=== PATIENT | female | born 1980 | race Caucasian/White ===

== ENCOUNTER → 2018-09-18 | Outpatient (CLI) | payer BC | LOC: CARD 09:54 | PROVIDERS: ATTEND Internal Medicine Cardiovascular Disease | DX: R07.9 Chest pain, unspecified (principal); R00.2 Palpitations | CPT/HCPCS: 93225; 93226 ==

== ENCOUNTER → 2018-10-20 | Outpatient (CLI) | payer BC | LOC: EDUNIT# 10-13 14:00 → CARD 09:42 | PROVIDERS: ATTEND Internal Medicine Cardiovascular Disease | DX: R07.89 Other chest pain (principal); R00.2 Palpitations; Z79.899 Other long term (current) drug therapy | CPT/HCPCS: 93351 ==

== ENCOUNTER → 2019-01-01 | Outpatient (CLI) | payer BC ==
--- NOTE | 2019-01-01 17:27 | Diagnostic Imaging Report ---
INDICATION: Bilateral breast pain. COMPARISON: No prior mammograms are available for comparison. EXAMINATION: 2D and 3D bilateral diagnostic mammography was performed with CAD. The current study was also evaluated with a Computer Aided Detection (CAD) system. FINDINGS: Both breasts are heterogeneously dense, limiting the sensitivity of mammography. No mass or malignant appearing microcalcifications are seen. There are benign calcifications. Axillae are unremarkable. IMPRESSION: No mammographic features suspicious for malignancy are identified. Even so, directed sonographic interrogation of the area of the patient's pain in both breasts is recommended and will be performed today. ACR BI-RADS Category 0: Incomplete. (Needs additional imaging evaluation). Result letter will be mailed to the patient. Note: At least 10% of breast cancer is not imaged by mammography. Dictated by: Dictated on workstation # [id number]
--- NOTE | 2019-01-01 17:39 | Diagnostic Imaging Report ---
INDICATION: Bilateral breast pain. COMPARISON: Correlation is made with diagnostic mammogram of earlier the same day. EXAMINATION: Interrogation of the areas of pain was performed of both breasts. FINDINGS: There is a simple cyst at the 12 o'clock location of the left breast, 3 cm from the nipple, measuring 11 mm x 4 mm x 5 mm. Otherwise, both breasts are unremarkable. No solid mass is detected. No suspicious sonographic abnormality is seen. IMPRESSION: Simple cyst in left breast, as described. No concerning finding is identified. ACR BI-RADS Category 2: Benign findings. Result letter will be mailed to the patient. Note: At least 10% of breast cancer is not imaged by mammography. Dictated by: Dictated on workstation # [id number]
--- NOTE | 2019-01-01 19:25 | Diagnostic Imaging Report ---
PROCEDURE: US pelvic (non-OB). TECHNIQUE: Multiple real-time grayscale images were obtained over the pelvis in various projections, transabdominally. INDICATION: Menorrhagia. FINDINGS: Uterus measures 7.1 x 4.2 x 4.0 cm. The endometrial stripe is 9 mm. Ovaries are normal in size and have normal blood flow. There is a simple follicular cyst on the left ovary. IMPRESSION: Negative pelvic sonogram. Dictated by: Dictated on workstation # [id number]
== END ==
LOC: RAD 13:11
PROVIDERS: ATTEND Nurse Practitioner Family
DX: N60.02 Solitary cyst of left breast (principal); N92.0 Excessive and frequent menstruation with regular cycle
CPT/HCPCS: 76642; 76856; 77066

== ENCOUNTER 2020-05-26 17:17 | Emergency (ER) | payer BC ==
[~2020-05-26] VITALS: Ht 162.5 cm; Wt 48.1 kg
[2020-05-26] VITALS (7 sets, daily range): BP systolic 103–146; BP diastolic 64–102
[2020-05-26] MEDS ORDERED: LIDOCAINE 2% VISCOUS 15 ML UDC PO ONE (17:45)
[2020-05-26] MEDS ORDERED: ANTACID SUSP 30 ML UDC (MYLANTA) PO ONE (17:45)
[2020-05-26] MEDS ORDERED: NS IV 500 ML 500 ML IV SCH (17:45)
[2020-05-26] MEDS ORDERED: ONDANSETRON 4 MG/2 ML (SDV) Z0FRAN IVP ONE (17:45)
[2020-05-26 17:46] LABS: BASOPHILS % (AUTO) 0 % (0-10); EOSINOPHILS % (AUTO) 0 % (0-10); HEMATOCRIT 39 % (35-52); HEMOGLOBIN 13.8 g/dL (11.5-16.0); LYMPHOCYTES # (AUTO) 1.6 10^3/uL (1.0-4.0); LYMPHOCYTES % (AUTO) 11 % (12-44); MEAN CORPUSCULAR HEMOGLOBIN 31 pg (25-34); MEAN CORPUSCULAR HGB CONC 35 g/dL (32-36); MEAN CORPUSCULAR VOLUME 88 fL (80-99); MEAN PLATELET VOLUME 10.5 fL (9.0-12.2); MONOCYTES % (AUTO) 7 % (0-12); NEUTROPHILS # (AUTO) 11.7 10^3/uL (1.8-7.8); NEUTROPHILS % (AUTO) 81 % (42-75); PLATELET COUNT 285 10^3/uL (130-400); WHITE BLOOD COUNT 14.3 10^3/uL (4.3-11.0)
--- NOTE | 2020-05-26 17:48 | ED Abdominal Pain ---
General Stated Complaint: HAE Source of Information: Patient Exam Limitations: No Limitations History of Present Illness Date Seen by Provider: May 26, 2020 Time Seen by Provider: 17:44 Initial Comments To ER with reports of midline upper abdominal pain, acid reflux. She also believes she has a urinary tract infection. She was actually referred here by her social media manager from [place] named Jamie Arevalo who called me before the patient showed up. Patient has been referred from gastroenterology in [place] to this gentleman's practice where she was recently diagnosed with hereditary angioedema. This particular episode of abdominal pain began about 52 hours ago and is associated with nausea without vomiting. Patient states she's been having these episodes intermittently throughout her life since a relatively young age. She has not had a diagnosis until now. She is C1-INH normal. He recommended transfusion of 1-4 units of FFP with each unit over 1 hour. If she needs more than 2 units, she could receive Lasix and potassium. If better after that, then he would recommend discharge to home. Timing/Duration: 2-3 Days Severity/Quality: Moderate, Cramping Location: Generalized Abdomen Radiation: No Radiation Activities at Onset: None Associated Symptoms: Nausea/Vomiting Allergies and Home Medications Allergies Coded Allergies: No Known Drug Allergies (Unverified , 05/26/20) Home Medications Amoxicillin 500 Mg Capsule, 500 MG PO TID Prescribed by: DENIS FONTANA on 05/26/202132 Patient Home Medication List Home Medication List Reviewed: Yes Review of Systems Review of Systems Constitutional: see HPI EENTM: No Symptoms Reported Respiratory: No Symptoms Reported Cardiovascular: No Symptoms Reported Gastrointestinal: See HPI, Abdominal Pain, Nausea Genitourinary: No Symptoms Reported Musculoskeletal: no symptoms reported Skin: no symptoms reported Psychiatric/Neurological: No Symptoms Reported Endocrine: No Symptoms Reported Past Swhulcf-Xllsml-Sajrfc Hx Patient Social History Recent Foreign Travel: No Contact w/Someone Who Travel: No Physical Exam Vital Signs Vital Signs - First Documented 05/26/20 17:25 Temp 35.8 Pulse 82 Resp 22 B/P (MAP) 137/88 (104) Pulse Ox 98 O2 Delivery Room Air Capillary Refill : Height/Weight/BMI Height: '" Weight: lbs. oz. kg; BMI Method: General Appearance: WD/WN, no apparent distress Respiratory: normal breath sounds, no respiratory distress, no accessory muscle use Gastrointestinal: normal bowel sounds, soft, tenderness (midline upper ) Extremities: normal range of motion, non-tender Neurologic/Psychiatric: alert, normal mood/affect, oriented x 3 Skin: normal color, warm/dry Progress/Results/Core Measures Results/Orders Lab Results Laboratory Tests Test 05/26/20 17:36 05/26/20 18:43 Range/Units White Blood Count 14.3 H 4.3-11.0 10^3/uL Red Blood Count 4.46 3.80-5.11 10^6/uL Hemoglobin 13.8 11.5-16.0 g/dL Hematocrit 39 35-52 % Mean Corpuscular Volume 88 80-99 fL Mean Corpuscular Hemoglobin 31 25-34 pg Mean Corpuscular Hemoglobin Concent 35 32-36 g/dL Red Cell Distribution Width 11.6 10.0-14.5 % Platelet Count 285 130-400 10^3/uL Mean Platelet Volume 10.5 9.0-12.2 fL Immature Granulocyte % (Auto) 1 % Neutrophils (%) (Auto) 81 H 42-75 % Lymphocytes (%) (Auto) 11 L 12-44 % Monocytes (%) (Auto) 7 0-12 % Eosinophils (%) (Auto) 0 0-10 % Basophils (%) (Auto) 0 0-10 % Neutrophils # (Auto) 11.7 H 1.8-7.8 10^3/uL Lymphocytes # (Auto) 1.6 1.0-4.0 10^3/uL Monocytes # (Auto) 1.0 0.0-1.0 10^3/uL Eosinophils # (Auto) 0.0 0.0-0.3 10^3/uL Basophils # (Auto) 0.0 0.0-0.1 10^3/uL Immature Granulocyte # (Auto) 0.1 0.0-0.1 10^3/uL Neutrophils % (Manual) 76 % Lymphocytes % (Manual) 13 % Monocytes % (Manual) 8 % Reactive Lymphocytes 3 % Blood Morphology Comment NORMAL Sodium Level 132 L 135-145 MMOL/L Potassium Level 3.4 L 3.6-5.0 MMOL/L Chloride Level 94 L 98-107 MMOL/L Carbon Dioxide Level 23 21-32 MMOL/L Anion Gap 15 H 5-14 MMOL/L Blood Urea Nitrogen 20 H 7-18 MG/DL Creatinine 0.81 0.60-1.30 MG/DL Estimat Glomerular Filtration Rate > 60 BUN/Creatinine Ratio 25 Glucose Level 109 H 70-105 MG/DL Calcium Level 10.1 8.5-10.1 MG/DL Corrected Calcium 8.5-10.1 MG/DL Total Bilirubin 1.6 H 0.1-1.0 MG/DL Aspartate Amino Transf (AST/SGOT) 16 5-34 U/L Alanine Aminotransferase (ALT/SGPT) 21 0-55 U/L Alkaline Phosphatase 60 40-136 U/L Total Protein 8.5 H 6.4-8.2 GM/DL Albumin 5.1 H 3.2-4.5 GM/DL Lipase 4 L 8-78 U/L Serum Test, Qualitative NEGATIVE NEGATIVE Urine Color YELLOW Urine Clarity CLEAR Urine pH 7.0 5-9 Urine Specific [place] <=1.005 1.016-1.022 Urine Protein NEGATIVE NEGATIVE Urine Glucose (UA) NEGATIVE NEGATIVE Urine Ketones NEGATIVE NEGATIVE Urine Nitrite NEGATIVE NEGATIVE Urine Bilirubin NEGATIVE NEGATIVE Urine Urobilinogen 0.2 < = 1.0 MG/DL Urine Leukocyte Esterase NEGATIVE NEGATIVE Urine RBC (Auto) 1+ H NEGATIVE Urine RBC RARE /HPF Urine WBC NONE /HPF Urine Squamous Epithelial Cells 0-2 /HPF Urine Crystals NONE /LPF Urine Bacteria TRACE /HPF Urine Casts NONE /LPF Urine Mucus NEGATIVE /LPF Urine Culture Indicated NO Urine Opiates Screen NEGATIVE NEGATIVE Urine Oxycodone Screen NEGATIVE NEGATIVE Urine Methadone Screen NEGATIVE NEGATIVE Urine Propoxyphene Screen NEGATIVE NEGATIVE Urine Barbiturates Screen NEGATIVE NEGATIVE Ur Tricyclic Antidepressants Screen NEGATIVE NEGATIVE Urine Phencyclidine Screen NEGATIVE NEGATIVE Urine Amphetamines Screen NEGATIVE NEGATIVE Urine Methamphetamines Screen NEGATIVE NEGATIVE Urine Benzodiazepines Screen NEGATIVE NEGATIVE Urine Cocaine Screen NEGATIVE NEGATIVE Urine Cannabinoids Screen POSITIVE H NEGATIVE My Orders Orders - DENIS FONTANA WEB SITE DEVELOPER Cbc With Automated Diff (05/26/20 17:24) Comprehensive Metabolic Panel (05/26/20 17:24) Ua Culture If Indicated (05/26/20 17:24) Ed Iv/Invasive Line Start (05/26/20 17:24) Type And Screen (05/26/20 17:24) Fresh Frozen Plasma (05/26/20 17:24) Ns Iv 500 Ml (Sodium Chloride 0.9%) (05/26/20 17:45) Ondansetron Injection (Zofran Injectio (05/26/20 17:45) Antacid Suspension (Mylanta Suspension (05/26/20 17:45) Lidocaine 2% Viscous 15 Ml (Xylocaine Vi (05/26/20 17:45) Manual Differential (05/26/20 11:36) Lipase (05/26/20 17:57) Ketorolac Injection (Toradol Injection) (05/26/20 19:45) Drug Screen Stat (Urine) (05/26/20 19:41) Ct Abdomen/Pelvis W (05/26/20 19:41) Ns (Ivpb) (Sodium Chloride 0.9%) (05/26/20 20:00) Promethazine Injection (Phenergan Injec (05/26/20 20:00) Ns (Ivpb) (Sodium Chloride 0.9% Ivpb Bag (05/26/20 19:50) Iohexol Injection (Omnipaque 350 Mg/Ml 1 (05/26/20 20:15) Received Contrast (Hold Metformin- Contr (05/26/20 20:15) Ns (Ivpb) (Sodium Chloride 0.9% Ivpb Bag (05/26/20 20:15) Hcg,Qualitative Serum (05/26/20 20:16) Fentanyl Injection (Sublimaze Injection (05/26/20 20:30) Fentanyl Injection (Sublimaze Injection (05/26/20 21:30) Rx-Hydrocodone/Apap 5-325 Mg (Rx-Vicodin (05/26/20 21:30) Ceftriaxone For Iv Use (Rocephin For I (05/26/20 21:30) Medications Given in ED Current Medications Medications Dose Ordered Sig/Samy Route Start Time Stop Time Status Last Admin Dose Admin Acetaminophen/ Hydrocodone Bitart 1 ea Q4H PRN PO 05/26/20 21:30 05/26/20 21:59 DC 05/26/20 21:40 1 EA Al Hydrox/Mg Hydrox/Simethicone 30 ml ONCE ONCE PO 05/26/20 17:45 05/26/20 17:46 DC 05/26/20 17:56 30 ML Ceftriaxone Sodium 1000 mg/ Sterile Water 10 ml @ 200 mls/hr ONCE ONCE IV 05/26/20 21:30 05/26/20 21:32 DC 05/26/20 21:40 200 MLS/HR Fentanyl Citrate 50 mcg ONCE ONCE IVP 05/26/20 20:30 05/26/20 20:31 DC 05/26/20 20:37 50 MCG Fentanyl Citrate 50 mcg ONCE ONCE IVP 05/26/20 21:30 05/26/20 21:31 DC 05/26/20 21:40 50 MCG Iohexol 100 ml ONCE ONCE IV 05/26/20 20:15 05/26/20 20:18 DC 05/26/20 20:27 66 ML Ketorolac Tromethamine 15 mg ONCE ONCE IVP 05/26/20 19:45 05/26/20 19:46 DC 05/26/20 19:53 15 MG Lidocaine HCl 15 ml ONCE ONCE PO 05/26/20 17:45 05/26/20 17:46 DC 05/26/20 17:56 15 ML Ondansetron HCl 8 mg ONCE ONCE IVP 05/26/20 17:45 05/26/20 17:46 DC 05/26/20 17:57 8 MG Promethazine HCl 25 mg ONCE ONCE IVP 05/26/20 20:00 05/26/20 20:01 DC 05/26/20 19:53 25 MG Sodium Chloride 100 ml ONCE ONCE IV 05/26/20 20:15 05/26/20 20:18 DC 05/26/20 20:28 80 ML Sodium Chloride 100 ml @ [facility] ONCE .ROUTE 05/26/20 19:50 05/26/20 19:52 DC 05/26/20 19:53 999 MLS/HR Vital Signs/I&O 05/26/20 05/26/20 05/26/20 05/26/20 17:25 18:49 19:04 20:00 Temp 35.8 36.3 36.7 36.7 Pulse 82 65 63 73 Resp 22 20 12 15 B/P (MAP) 137/88 (104) 121/88 103/73 130/99 Pulse Ox 98 98 98 98 O2 Delivery Room Air Room Air Room Air 05/26/20 05/26/20 05/26/20 05/26/20 20:18 20:33 21:35 21:59 Temp 36.7 36.6 36.9 Pulse 75 71 76 76 Resp 16 16 17 16 B/P (MAP) 146/102 138/64 144/91 144/91 Pulse Ox 96 95 96 96 O2 Delivery Simple Mask Room Air Room Air Room Air Departure Communication (Admissions) 1751-she does have leukocytosis but she tells me that she is always has leukocytosis from what she has been told. She states that she has not had a CAT scan recently but she has had many CAT scans over the years for this recurrent abdominal pain. For this reason I would prefer not to reimage her due to cum ulative radiation concerns. Discussed this with her. He agreed on a plan to proceed with imaging if 2 units of FFP fail to resolve her symptoms. 2116-NAME: KATHRYN CHACON [facility] REC#: [id number] PT STATUS: REG ER : 1980 PHYSICIAN: DENIS FONTANA WEB SITE DEVELOPER ADMIT DATE: 05/26/20/ER Signed Date of Exam:05/26/20 CT ABDOMEN/PELVIS W PROCEDURE: CT abdomen and pelvis with contrast. TECHNIQUE: Multiple contiguous axial images were obtained through the abdomen and pelvis after administration of intravenous contrast. Auto Exposure Controls were utilized during the CT exam to meet ALARA standards for radiation dose reduction. All CT scans use one or more of the following dose optimizing techniques: automated exposure control, MA and/or KvP adjustment based on patient size and exam type or iterative reconstruction. INDICATION: Abdominal pain. COMPARISON: None. FINDINGS: The lung bases are clear. The gallbladder is surgically absent. Solid organs, vascular structures and bowel are unremarkable. There is no free air, free fluid or inflammatory process. Uterus is present. The urinary bladder is normal. There is no lymphadenopathy. Osseous structures are age-appropriate. IMPRESSION: 1. Surgically absent gallbladder. No acute abnormality is identified within the abdomen or pelvis. 2. Normal appearing bowel. Please note the appendix is not identified on this series. Dictated by: Dictated on workstation # [id number] Dict: 05/26/202038 Trans: 05/26/202057 E [id number] Interpreted by: ЕКАТЕРИНА FUCHS Electronically signed by: ЕКАТЕРИНА FUCHS 05/26/202057-feeling a little better at this time. She states that she was on amoxicillin for a bad tooth when this attack began. Dr. Arevalo reports he would prefer if we could control her pain as that can precipitate an attack of hereditary angioedema. I'll give her some Rocephin here, fentanyl and h ydrocodone take-home And prescription for antibiotics for history of dental pain. Impression Primary Impression: Recurrent abdominal pain Disposition: HOME, SELF-CARE Condition: Improved Departure-Patient Inst. Decision time for Depature: 19:10 [facility] Primary Care Physician CARMEN BENJAMIN (Family) Primary Care Physician Patient Instructions: No Instuctions Given Add. Discharge Instructions: 1. Return to ER for any concerns 2. Follow up with your doctor this week. Scripts Amoxicillin (Amoxicillin) 500 Mg Capsule 500 MG PO TID, #21 CAP 0 Refills Prov: DENIS FONTANA APRN 05/26/20 DENIS FONTANA APRN May 26, 2020 17:48
[2020-05-26 17:56] LABS: ALBUMIN 5.1 GM/DL (3.2-4.5)
[2020-05-26 17:57] LABS: CHLORIDE 94 MMOL/L (98-107); POTASSIUM 3.4 MMOL/L (3.6-5.0); SODIUM 132 MMOL/L (135-145)
[2020-05-26 17:58] LABS: CALCIUM 10.1 MG/DL (8.5-10.1)
[2020-05-26 17:59] LABS: GLUCOSE 109 MG/DL (70-105); TOTAL PROTEIN 8.5 GM/DL (6.4-8.2)
[2020-05-26 18:00] LABS: CARBON DIOXIDE 23 MMOL/L (21-32)
[2020-05-26 18:01] LABS: BILIRUBIN,TOTAL 1.6 MG/DL (0.1-1.0)
[2020-05-26 18:03] LABS: ALKALINE PHOSPHATASE 60 U/L (40-136); CREATININE SERUM 0.81 MG/DL (0.60-1.30); GFR ESTIMATED > 60
[2020-05-26 18:04] LABS: BUN/CREATININE RATIO 25
[2020-05-26 18:06] LABS: ALANINE AMINOTRANSFERASE 21 U/L (0-55)
[2020-05-26 18:17] LABS: LYMPHOCYTES % (MANUAL) 13 %; MONOCYTES % (MANUAL) 8 %; NEUTROPHILS % (MANUAL) 76 %; RBC MORPH NORMAL; REACTIVE LYMPHOCYTES 3 %
[2020-05-26 18:50] LABS: BILIRUBIN,URINE NEGATIVE (NEGATIVE); CLARITY,URINE CLEAR; COLOR,URINE YELLOW; GLUCOSE, URINE (UA) NEGATIVE (NEGATIVE); KETONES,URINE NEGATIVE (NEGATIVE); LEUKOCYTE ESTERASE ,URINE NEGATIVE (NEGATIVE); NITRITE,URINE NEGATIVE (NEGATIVE); PROTEIN,URINE NEGATIVE (NEGATIVE)
[2020-05-26 18:55] LABS: BACTERIA,URINE TRACE /HPF; RBC,URINE RARE /HPF; SQUAMOUS EPITHELIAL CELL,UR 0-2 /HPF
[2020-05-26] MEDS ORDERED: KETOROLAC 30 MG/ML VIAL IVP ONE (19:45)
[2020-05-26] MEDS ORDERED: NS (IVPB) 100 ML ONE (19:50)
[2020-05-26] MEDS ORDERED: PROMETHAZINE INJ 25 MG/ML (PHENERGAN) AMP IVP ONE (20:00)
[2020-05-26] MEDS ORDERED: NS (IVPB) 250 ML IV ONE (20:00)
[2020-05-26 20:08] LABS: AMPHETAMINE SCREEN, URINE NEGATIVE (NEGATIVE); BARBITURATE SCREEN URINE NEGATIVE (NEGATIVE); BENZODIAZEPINES SCREEN URINE NEGATIVE (NEGATIVE); CANNABINOID SCREEN, URINE POSITIVE (NEGATIVE); COCAINE SCREEN URINE NEGATIVE (NEGATIVE); METHADONE STAT NEGATIVE (NEGATIVE); METHAMPHETAMINE SCREEN URINE S NEGATIVE (NEGATIVE); OPIATE SCREEN URINE NEGATIVE (NEGATIVE); OXYCODONE STAT NEGATIVE (NEGATIVE); PROPOXYPHENE STAT NEGATIVE (NEGATIVE); TRICYCLIC ANTIDEPRESSANTS SCRE NEGATIVE (NEGATIVE)
[2020-05-26] MEDS ORDERED: IOHEXOL 350 MG/ML 100 ML (OMNIPAQUE 350) VIAL IV ONE (20:15)
[2020-05-26] MEDS ORDERED: HOLD METFORMIN - RECEIVED CONTRAST 20 ML VIAL IV SCH (20:15)
[2020-05-26] MEDS ORDERED: NS 100 ML (IVPB) BAG IV ONE (20:15)
[2020-05-26] MEDS ORDERED: fentaNYL INJECTION 100 MCG/2 ML AMP IVP ONE ×2 (20:30→21:30)
--- NOTE | 2020-05-26 20:50 | Diagnostic Imaging Report ---
PROCEDURE: CT abdomen and pelvis with contrast. TECHNIQUE: Multiple contiguous axial images were obtained through the abdomen and pelvis after administration of intravenous contrast. Auto Exposure Controls were utilized during the CT exam to meet ALARA standards for radiation dose reduction. All CT scans use one or more of the following dose optimizing techniques: automated exposure control, MA and/or KvP adjustment based on patient size and exam type or iterative reconstruction. INDICATION: Abdominal pain. COMPARISON: None. FINDINGS: The lung bases are clear. The gallbladder is surgically absent. Solid organs, vascular structures and bowel are unremarkable. There is no free air, free fluid or inflammatory process. Uterus is present. The urinary bladder is normal. There is no lymphadenopathy. Osseous structures are age-appropriate. IMPRESSION: 1. Surgically absent gallbladder. No acute abnormality is identified within the abdomen or pelvis. 2. Normal appearing bowel. Please note the appendix is not identified on this series. Dictated by: Dictated on workstation # [id number]
[2020-05-26] MEDS ORDERED: cefTRIAXone FOR IV USE 1,000 MG in WATER (STERILE) FOR INJECTION 10 ML IV ONE (21:30)
[2020-05-26] MEDS ORDERED: RX-HYDROCODONE/APAP 5/325 MG #4 TAB PK PO PRN (21:30)
[2020-05-26] MEDS ORDERED: AMOX500C2 PO (21:33)
== END 2020-05-26 21:59 | disposition home or self-care (01) ==
LOC: EDUNIT# 17:17 → ER 17:18
DX: R10.84 Generalized abdominal pain (principal)
CPT/HCPCS: 36430; 74177; 80053; 80306; 81000; 83690; 84703; 85007; 85027; 86850; 86900; 86901; 99285; P9017; 36415

== ENCOUNTER 2020-08-21 14:04 | Emergency (ER) | payer BC ==
[~2020-08-21] VITALS: Ht 165.1 cm; Wt 47.6 kg
[2020-08-21] VITALS (8 sets, daily range): BP systolic 103–119; BP diastolic 62–79
[~2020-08-21 14:04] MED LIST: AMOX500C2 PO
[2020-08-21] MEDS ORDERED: diphenhydrAMINE 50 MG/ML INJ (BENADRYL) IVP ONE (14:15)
[2020-08-21] MEDS ORDERED: ONDANSETRON 4 MG/2 ML (SDV) Z0FRAN IVP ONE ×2 (14:15→17:15)
[2020-08-21] MEDS ORDERED: HALOPERIDOL 5 MG/ML (HALDOL) VIAL IV ONE (14:15)
[2020-08-21] MEDS ORDERED: NS IV 500 ML 500 ML IV SCH ×2 (14:15→14:45)
--- NOTE | 2020-08-21 14:19 | ED Abdominal Pain ---
General Stated Complaint: HAE ATTACK Source of Information: Patient Exam Limitations: No Limitations History of Present Illness Date Seen by Provider: Aug 21, 2020 Time Seen by Provider: 14:17 Initial Comments To ER with reports of a hereditary angioedema attack that began about 9 AM this morning associated with upper abdominal pain nausea and vomiting that she cannot control. She states that she has had hereditary angioedema all of her life. The attacks are less frequent now because she is on preventative medication but she is having an "breakthrough attack". She smokes marijuana at least once per day she states but she informs me that she started this after the hereditary angioedema and the nausea vomiting could not possibly be associated with the recurrent THC use. We will give her 2 units of fresh frozen plasma and check some labs. Timing/Duration: 1-3 Hours Severity/Quality: Moderate Location: Generalized Abdomen Radiation: No Radiation Activities at Onset: None Associated Symptoms: Nausea/Vomiting Allergies and Home Medications Allergies Coded Allergies: No Known Drug Allergies (Unverified , 05/26/20) Home Medications Amoxicillin 500 Mg Capsule, 500 MG PO TID Prescribed by: DENIS FONTANA on 05/26/202132 Patient Home Medication List Home Medication List Reviewed: Yes Review of Systems Review of Systems Constitutional: see HPI EENTM: No Symptoms Reported Respiratory: No Symptoms Reported Cardiovascular: No Symptoms Reported Gastrointestinal: See HPI, Abdominal Pain, Nausea, Vomiting Genitourinary: No Symptoms Reported Musculoskeletal: no symptoms reported Skin: no symptoms reported Psychiatric/Neurological: No Symptoms Reported Endocrine: No Symptoms Reported Hematologic/Lymphatic: No Symptoms Reported Past Pthudqp-Cruaiw-Slukbt Hx Patient Social History Drug of Choice: MARIJUANA Recent Hopitalizations: No Immunizations Up To Date Tetanus Booster (TDap): Unknown Seasonal Allergies Seasonal Allergies: No Past Medical History Surgeries: Yes Gallbladder, Tubal Ligation Respiratory: No Cardiac: No Neurological: No Genitourinary: Yes Kidney Stones Gastrointestinal: No Musculoskeletal: No Endocrine: No HEENT: No Cancer: No Psychosocial: No Integumentary: No Blood Disorders: No Physical Exam Vital Signs Vital Signs - First Documented 08/21/20 14:12 Temp 35.7 Pulse 78 Resp 20 B/P (MAP) 138/105 (116) Pulse Ox 98 O2 Delivery Room Air Capillary Refill : Height/Weight/BMI Height: '" Weight: lbs. oz. kg; 18.00 BMI Method: General Appearance: WD/WN, no apparent distress, thin Neck: non-tender, full range of motion Respiratory: no respiratory distress, no accessory muscle use Cardiovascular: regular rate, rhythm, no murmur Gastrointestinal: normal bowel sounds, soft, tenderness Extremities: normal range of motion, non-tender Neurologic/Psychiatric: alert, normal mood/affect, oriented x 3 Skin: normal color, warm/dry Progress/Results/Core Measures Results/Orders Lab Results Laboratory Tests Test 08/21/20 14:18 08/21/20 14:49 Range/Units White Blood Count 16.5 H 4.3-11.0 10^3/uL Red Blood Count 4.15 3.80-5.11 10^6/uL Hemoglobin 12.8 11.5-16.0 g/dL Hematocrit 38 35-52 % Mean Corpuscular Volume 92 80-99 fL Mean Corpuscular Hemoglobin 31 25-34 pg Mean Corpuscular Hemoglobin Concent 33 32-36 g/dL Red Cell Distribution Width 12.5 10.0-14.5 % Platelet Count 281 130-400 10^3/uL Mean Platelet Volume 10.5 9.0-12.2 fL Immature Granulocyte % (Auto) 0 % Neutrophils (%) (Auto) 84 H 42-75 % Lymphocytes (%) (Auto) 11 L 12-44 % Monocytes (%) (Auto) 5 0-12 % Eosinophils (%) (Auto) 0 0-10 % Basophils (%) (Auto) 0 0-10 % Neutrophils # (Auto) 13.8 H 1.8-7.8 X 10^3 Lymphocytes # (Auto) 1.7 1.0-4.0 X 10^3 Monocytes # (Auto) 0.9 0.0-1.0 X 10^3 Eosinophils # (Auto) 0.0 0.0-0.3 10^3/uL Basophils # (Auto) 0.0 0.0-0.1 10^3/uL Immature Granulocyte # (Auto) 0.1 0.0-0.1 10^3/uL Neutrophils % (Manual) 78 % Lymphocytes % (Manual) 16 % Monocytes % (Manual) 5 % Band Neutrophils 1 % Blood Morphology Comment NORMAL Sodium Level 140 135-145 MMOL/L Potassium Level 4.2 3.6-5.0 MMOL/L Chloride Level 105 98-107 MMOL/L Carbon Dioxide Level 23 21-32 MMOL/L Anion Gap 12 5-14 MMOL/L Blood Urea Nitrogen 11 7-18 MG/DL Creatinine 0.84 0.60-1.30 MG/DL Estimat Glomerular Filtration Rate > 60 BUN/Creatinine Ratio 13 Glucose Level 162 H 70-105 MG/DL Calcium Level 9.5 8.5-10.1 MG/DL Corrected Calcium 8.5-10.1 MG/DL Total Bilirubin 0.6 0.1-1.0 MG/DL Aspartate Amino Transf (AST/SGOT) 14 5-34 U/L Alanine Aminotransferase (ALT/SGPT) 15 0-55 U/L Alkaline Phosphatase 72 40-136 U/L Total Protein 8.0 6.4-8.2 GM/DL Albumin 4.7 H 3.2-4.5 GM/DL Lipase 9 8-78 U/L Serum Test, Qualitative NEGATIVE NEGATIVE Urine Color YELLOW Urine Clarity SL CLOUDY Urine pH 6.0 5-9 Urine Specific [place] >=1.030 1.016-1.022 Urine Protein NEGATIVE NEGATIVE Urine Glucose (UA) NEGATIVE NEGATIVE Urine Ketones NEGATIVE NEGATIVE Urine Nitrite NEGATIVE NEGATIVE Urine Bilirubin NEGATIVE NEGATIVE Urine Urobilinogen 0.2 < = 1.0 MG/DL Urine Leukocyte Esterase NEGATIVE NEGATIVE Urine RBC (Auto) NEGATIVE NEGATIVE Urine RBC NONE /HPF Urine WBC 0-2 /HPF Urine Squamous Epithelial Cells RARE /HPF Urine Crystals PRESENT H /LPF Urine Amorphous Sediment FEW [place] URATES H /LPF Urine Bacteria TRACE /HPF Urine Casts NONE /LPF Urine Mucus LARGE H /LPF Urine Culture Indicated NO Urine Opiates Screen NEGATIVE NEGATIVE Urine Oxycodone Screen NEGATIVE NEGATIVE Urine Methadone Screen NEGATIVE NEGATIVE Urine Propoxyphene Screen NEGATIVE NEGATIVE Urine Barbiturates Screen NEGATIVE NEGATIVE Ur Tricyclic Antidepressants Screen NEGATIVE NEGATIVE Urine Phencyclidine Screen NEGATIVE NEGATIVE Urine Amphetamines Screen NEGATIVE NEGATIVE Urine Methamphetamines Screen NEGATIVE NEGATIVE Urine Benzodiazepines Screen NEGATIVE NEGATIVE Urine Cocaine Screen NEGATIVE NEGATIVE Urine Cannabinoids Screen POSITIVE H NEGATIVE My Orders Orders - DENIS FONTANA APRN Type And Screen (08/21/20 14:10) Cbc With Automated Diff (08/21/20 14:10) Comprehensive Metabolic Panel (08/21/20 14:10) Lipase (08/21/20 14:10) Ua Culture If Indicated (08/21/20 14:10) Drug Screen Stat (Urine) (08/21/20 14:10) Hcg,Qualitative Serum (08/21/20 14:10) Ondansetron Injection (Zofran Injectio (08/21/20 14:15) Ns Iv 500 Ml (Sodium Chloride 0.9%) (08/21/20 14:15) Diphenhydramine Injection (Benadryl Inje (08/21/20 14:15) Haloperidol Injection (Haldol Injectio (08/21/20 14:15) Manual Differential (08/21/20 14:18) Fresh Frozen Plasma (08/21/20 14:43) Ns Iv 500 Ml (Sodium Chloride 0.9%) (08/21/20 14:45) Abo Rh Type (08/21/20 14:18) Medications Given in ED Current Medications Medications Dose Ordered Sig/Samy Route Start Time Stop Time Status Last Admin Dose Admin Diphenhydramine HCl 25 mg ONCE ONCE IVP 08/21/20 14:15 08/21/20 14:16 DC 08/21/20 14:26 25 MG Haloperidol Lactate 3 mg ONCE ONCE IV 08/21/20 14:15 08/21/20 14:16 DC 08/21/20 14:26 3 MG Ondansetron HCl 8 mg ONCE ONCE IVP 08/21/20 14:15 08/21/20 14:16 DC 08/21/20 14:27 8 MG Vital Signs/I&O 08/21/20 14:12 Temp 35.7 Pulse 78 Resp 20 B/P (MAP) 138/105 (116) Pulse Ox 98 O2 Delivery Room Air Departure Communication (Admissions) 2663-she has not yet received the 2 units of FFP though her symptoms are nearly resolved after Benadryl Zofran Haldol. 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 Impression Primary Impression: Recurrent abdominal pain Additional Impression: recurrent nausea/vomiting Disposition: 01 HOME, SELF-CARE Condition: Stable Departure-Patient Inst. Decision time for Depature: 15:25 Referrals: LORENA ALVAREZ DO (PCP/Family) Primary Care Physician Patient Instructions: Nausea and Vomiting, Adult, Abdominal Pain, Adult ED Add. Discharge Instructions: 1. Follow-up with your regular doctor next week. Try to reduce marijuana intake though you do not have to stop it entirely. However there is a syndrome called hyperemesis cannabinoid syndrome which can lead to recurrent nausea vomiting abdominal pain. Try to reduce your use by about half if possible as that could be contributing to your symptoms. Scripts Prochlorperazine Maleate (Compazine) 10 Mg Tablet 10 MG PO BID PRN for NAUSEA/VOMITING, #10 TAB Prov: DENIS FONTANA APRN 08/21/20 DENIS FONTANA APRN Aug 21, 2020 14:19
[2020-08-21 14:26] LABS: BASOPHILS % (AUTO) 0 % (0-10); EOSINOPHILS % (AUTO) 0 % (0-10); HEMATOCRIT 38 % (35-52); HEMOGLOBIN 12.8 g/dL (11.5-16.0); LYMPHOCYTES # (AUTO) 1.7 X 10^3 (1.0-4.0); LYMPHOCYTES % (AUTO) 11 % (12-44); MEAN CORPUSCULAR HEMOGLOBIN 31 pg (25-34); MEAN CORPUSCULAR HGB CONC 33 g/dL (32-36); MEAN CORPUSCULAR VOLUME 92 fL (80-99); MEAN PLATELET VOLUME 10.5 fL (9.0-12.2); MONOCYTES # (AUTO) 0.9 X 10^3 (0.0-1.0); MONOCYTES % (AUTO) 5 % (0-12); NEUTROPHILS # (AUTO) 13.8 X 10^3 (1.8-7.8); NEUTROPHILS % (AUTO) 84 % (42-75); PLATELET COUNT 281 10^3/uL (130-400); WHITE BLOOD COUNT 16.5 10^3/uL (4.3-11.0)
[2020-08-21 14:33] LABS: ALBUMIN 4.7 GM/DL (3.2-4.5); CHLORIDE 105 MMOL/L (98-107); POTASSIUM 4.2 MMOL/L (3.6-5.0); SODIUM 140 MMOL/L (135-145)
[2020-08-21 14:34] LABS: CALCIUM 9.5 MG/DL (8.5-10.1)
[2020-08-21 14:35] LABS: GLUCOSE 162 MG/DL (70-105)
[2020-08-21 14:37] LABS: BILIRUBIN,TOTAL 0.6 MG/DL (0.1-1.0); CARBON DIOXIDE 23 MMOL/L (21-32)
[2020-08-21 14:39] LABS: ALKALINE PHOSPHATASE 72 U/L (40-136); CREATININE SERUM 0.84 MG/DL (0.60-1.30); GFR ESTIMATED > 60
[2020-08-21 14:40] LABS: BUN/CREATININE RATIO 13; NEUTROPHILS % (MANUAL) 78 %
[2020-08-21 14:41] LABS: BAND NEUTROPHILS 1 %; LYMPHOCYTES % (MANUAL) 16 %; MONOCYTES % (MANUAL) 5 %; RBC MORPH NORMAL
[2020-08-21 14:42] LABS: ALANINE AMINOTRANSFERASE 15 U/L (0-55); LIPASE 9 U/L (8-78)
[2020-08-21 14:55] LABS: BILIRUBIN,URINE NEGATIVE (NEGATIVE); COLOR,URINE YELLOW; GLUCOSE, URINE (UA) NEGATIVE (NEGATIVE); KETONES,URINE NEGATIVE (NEGATIVE); LEUKOCYTE ESTERASE ,URINE NEGATIVE (NEGATIVE); NITRITE,URINE NEGATIVE (NEGATIVE); PROTEIN,URINE NEGATIVE (NEGATIVE)
[2020-08-21 15:07] LABS: AMORPHOUS SEDIMENT,UR FEW AMOR URATES /LPF; BACTERIA,URINE TRACE /HPF; CLARITY,URINE SL CLOUDY; SQUAMOUS EPITHELIAL CELL,UR RARE /HPF; WBC,URINE 0-2 /HPF
[2020-08-21 15:09] LABS: AMPHETAMINE SCREEN, URINE NEGATIVE (NEGATIVE); BARBITURATE SCREEN URINE NEGATIVE (NEGATIVE); BENZODIAZEPINES SCREEN URINE NEGATIVE (NEGATIVE); CANNABINOID SCREEN, URINE POSITIVE (NEGATIVE); COCAINE SCREEN URINE NEGATIVE (NEGATIVE); METHADONE STAT NEGATIVE (NEGATIVE); METHAMPHETAMINE SCREEN URINE S NEGATIVE (NEGATIVE); OPIATE SCREEN URINE NEGATIVE (NEGATIVE); OXYCODONE STAT NEGATIVE (NEGATIVE); PROPOXYPHENE STAT NEGATIVE (NEGATIVE); TRICYCLIC ANTIDEPRESSANTS SCRE NEGATIVE (NEGATIVE)
[2020-08-21] MEDS ORDERED: PROC-1 PO (15:27)
== END 2020-08-21 17:47 | disposition home or self-care (01) ==
LOC: EDUNIT# 14:04 → ER 14:06
DX: R10.84 Generalized abdominal pain (principal); R11.2 Nausea with vomiting, unspecified
CPT/HCPCS: 36430; 80053; 80306; 81000; 83690; 84703; 85007; 85027; 86850; 86900; 86901; 99285; P9017; 36415

== ENCOUNTER → 2021-02-20 | Outpatient (CLI) | payer BC ==
[~2021-02-20] MED LIST changes: +PROC-1 PO
--- NOTE | 2021-02-20 14:50 | Diagnostic Imaging Report ---
PROCEDURE: US PELVIC (NON OB) TECHNIQUE: Multiple real-time grayscale images were obtained over the pelvis in various projections transabdominally. INDICATION: Abnormal uterine bleeding. FINDINGS: The uterus measures 7 x 4 x 5 cm. The endometrium measures 12 mm. The right ovary measures 2.9 x 2.8 cm. The left ovary measures 2.9 x 3.1 cm. Myometrium appears normal. There is a trilaminar appearance to the endometrium with no focal mass evident. The uterine cavity is empty. There is blood flow to the ovaries. There are follicles on the ovaries. There is no adnexal mass or free fluid. IMPRESSION: No acute abnormality is seen. Dictated by: Dictated on workstation # [id number]
== END ==
LOC: RAD 14:30
PROVIDERS: ATTEND Obstetrics & Gynecology
DX: N93.9 Abnormal uterine and vaginal bleeding, unspecified (principal)
CPT/HCPCS: 76856

== ENCOUNTER 2021-03-19 05:34 | Outpatient (CLI) | payer BC ==
[~2021-03-19] VITALS: Ht 162.6 cm; Wt 48.6 kg
[2021-03-19] MEDS ORDERED: MULTIVITAMIN (14:09)
[2021-03-19] MEDS ORDERED: [UNRECOGNIZED DRUG - CODE] SQ (14:09)
[2021-03-19] MEDS ORDERED: ICAT30DI SQ (14:09)
[2021-03-19] MEDS ORDERED: DICY20TA10 PO (14:48)
[2021-03-19] MEDS ORDERED: HYOS0.1281 PO (14:48)
[2021-03-19] MEDS ORDERED: MULT-141 PO (14:48)
== END 2021-03-19 14:50 | disposition home or self-care (01) ==
LOC: PREOP 05:34
PROVIDERS: ATTEND Obstetrics & Gynecology
DX: Z01.818 Encounter for other preprocedural examination (principal)

== ENCOUNTER 2021-03-26 08:05 | Day surgery (SDC) | payer BC ==
[~2021-03-26] VITALS: Ht 162 cm; Wt 48.6 kg
[2021-03-26] VITALS (10 sets, daily range): BP systolic 100–116; BP diastolic 63–90
[~2021-03-26 08:05] MED LIST changes: +DICY20TA10 PO; +HYOS0.1281 PO; +ICAT30DI SQ; +MULT-141 PO; +MULTIVITAMIN; +[UNRECOGNIZED DRUG - CODE] SQ
[2021-03-26] MEDS ORDERED: metroNIDAZOLE 500MG/100ML IVPB 100 ML IV ONE (08:45)
[2021-03-26] MEDS ORDERED: ceFAZolin INJECTION 1,000 MG in WATER (STERILE) FOR INJECTION 10 ML IV ONE (08:45)
[2021-03-26] MEDS ORDERED: ONDANSETRON 4 MG/2 ML (SDV) Z0FRAN IV ONE (09:15)
[2021-03-26] MEDS ORDERED: FAMOTIDINE 20MG/2ML IV (PEPCID) IV ONE (09:15)
[2021-03-26] MEDS: LACTATED RINGERS 1,000 ML IV PRN ×2 (09:20→12:27)
[2021-03-26 09:29] LABS: BASOPHILS % (AUTO) 0 % (0-10); EOSINOPHILS # (AUTO) 0.1 10^3/uL (0.0-0.3); EOSINOPHILS % (AUTO) 1 % (0-10); HEMATOCRIT 37 % (35-52); HEMOGLOBIN 12.5 g/dL (11.5-16.0); LYMPHOCYTES % (AUTO) 17 % (12-44); MEAN CORPUSCULAR HEMOGLOBIN 31 pg (25-34); MEAN CORPUSCULAR HGB CONC 34 g/dL (32-36); MEAN CORPUSCULAR VOLUME 92 fL (80-99); MEAN PLATELET VOLUME 11.1 fL (9.0-12.2); MONOCYTES # (AUTO) 1.1 10^3/uL (0.0-1.0); MONOCYTES % (AUTO) 9 % (0-12); NEUTROPHILS # (AUTO) 8.6 10^3/uL (1.8-7.8); NEUTROPHILS % (AUTO) 72 % (42-75); PLATELET COUNT 224 10^3/uL (130-400); WHITE BLOOD COUNT 11.9 10^3/uL (4.3-11.0)
--- NOTE | 2021-03-26 09:53 | Progress Note-Pre Operative ---
Pre-Operative Progress Note H&P Reviewed The H&P was reviewed, patient examined and no changes noted. Date Seen by Provider: Mar 26, 2021 Time Seen by Provider: 09:55 Date H&P Reviewed: Mar 26, 2021 Time H&P Reviewed: 09:55 Pre-Operative Diagnosis: HAE, CPP, Dysmenorrhea CHILANGO TATUM DO Mar 26, 2021 09:53
--- NOTE | 2021-03-26 09:56 | Discharge Inst-Women's Service ---
Discharge Inst-Women's Serv Depart Medication/Instructions New, Converted or Re-Newed RX: RX on Chart Problems Reviewed?: Yes Consults/Follow Up Additional Follow Up: Yes Orders/Referrals Dr. Zhao in 7-10 days and in 8 weeks Activity Activity: Activity as Tolerated Driving Instructions: No Driving for 1 Week NO SMOKING: NO SMOKING Nothing Inside Vagina: No Douching, No [place], No Tampons Diet Discharge Diet: No Restrictions Symptoms to Report to : Bleeding Excessive, Pain Increased, Fever Over 101 Degrees F, Vaginal Bleeding Increase, Questions/Concerns For Any Problems or Questions: Contact Your Physician Skin/Wound Care Infection Signs and Symptoms: Increased Redness, Foul Odor of Wound, Increased Drainage, Skin Itchy or Has a Rash, Increased Swelling, Temperature Above 101 F Operative Area Clean and Dry: Keep Incision Clean/Dry Stitches/Misty/Dermabond: Dermabond, Care of Stitches Bathing Instructions: CHILANGO Munoz DO Mar 26, 2021 09:56
[2021-03-26] MEDS ORDERED: IBUP-844 PO (09:57)
[2021-03-26] MEDS ORDERED: DCS100C PO (09:57)
[2021-03-26] MEDS ORDERED: SMT80CT PO (09:57)
[2021-03-26] MEDS ORDERED: ACHD5005 PO (09:57)
[2021-03-26] MEDS ORDERED: ZOLPIDEM 5 MG (AMBIEN) TAB PO PRN (10:00)
[2021-03-26] MEDS ORDERED: NALOXONE 0.4 MG/ML 1 ML (NARCAN) VIAL IV PRN (10:00)
[2021-03-26] MEDS ORDERED: ANTACID SUSP 30 ML UDC (MYLANTA) PO PRN (10:00)
[2021-03-26] MEDS ORDERED: KETOROLAC 30 MG/ML VIAL IVP PRN (10:00)
[2021-03-26] MEDS ORDERED: ONDANSETRON 4 MG/2 ML (SDV) Z0FRAN IV PRN (10:00)
[2021-03-26] MEDS ORDERED: LACTATED RINGERS 1,000 ML IV SCH (10:00)
[2021-03-26] MEDS ORDERED: SIMETHICONE 80 MG (MYLICON) CHEW PO PRN (10:00)
[2021-03-26] MEDS ORDERED: DOCUSATE SODIUM 100 MG (COLACE) CAP PO PRN (10:00)
[2021-03-26] MEDS ORDERED: CHLORASEPTIC LOZENGE MM PRN (10:00)
[2021-03-26] MEDS ORDERED: HYDROcodone/APAP 5 MG/325 MG (LORTAB) TAB PO PRN (10:00)
[2021-03-26] MEDS ORDERED: BUPIVACAINE 0.25% 30 ML (SENSORCAINE) VIAL ONE (10:47)
[2021-03-26] MEDS ORDERED: proPOfol 200 MG/20 ML (DIPRIVAN) VIAL IV ONE (11:35)
[2021-03-26] MEDS ORDERED: GLYCOPYRROLATE 0.2 MG/ML (ROBINUL) 2 ML VIAL ONE (11:35)
[2021-03-26] MEDS ORDERED: fentaNYL INJ 100 MCG/2 ML AMP ONE (11:35)
[2021-03-26] MEDS ORDERED: ONDANSETRON 4 MG/2 ML (SDV) Z0FRAN ONE ×2 (11:35→13:25)
[2021-03-26] MEDS ORDERED: NEOSTIGMINE 3 MG/3 ML VIAL ONE (11:35)
[2021-03-26] MEDS ORDERED: LIDOCAINE PF 2% 5 ML (XYLOCAINE) VIAL ONE (11:35)
[2021-03-26] MEDS ORDERED: ROCURONIUM 10 MG/ML 5 ML SYRINGE IV ONE (11:35)
[2021-03-26] MEDS ORDERED: MIDAZOLAM 2 MG/2 ML (VERSED) VIAL ONE (11:36)
[2021-03-26] MEDS ORDERED: SEVOFLURANE (ULTANE) 15 ML INHAL SOLN ONE (13:19)
[2021-03-26] MEDS ORDERED: morphine INJ 10 MG/ML 1ML (SYR OR VIAL) ONE (13:25)
[2021-03-26] MEDS ORDERED: ONDANSETRON 4 MG/2 ML (SDV) Z0FRAN IVP PRN (13:30)
[2021-03-26] MEDS ORDERED: HYDROmorphone 2 MG/ML VIAL (DILAUDID) IV ONE (13:30)
[2021-03-26] MEDS ORDERED: morphine INJ 10 MG/ML 1ML (SYR OR VIAL) IVP ONE (13:30)
[2021-03-26] MEDS ORDERED: MEPERIDINE (DEMEROL) INJ 50 MG/ML ONE (13:34)
[2021-03-26] MEDS ORDERED: MEPERIDINE (DEMEROL) INJ 50 MG/ML IVP ONE (13:45)
[2021-03-26] MEDS ORDERED: KETOROLAC 30 MG/ML VIAL ONE (14:31)
[2021-03-26] MEDS ORDERED: HYDROcodone/APAP 5 MG/325 MG (LORTAB) TAB ONE (14:31)
--- NOTE | 2021-03-26 22:06 | OPERATIVE REPORT ---
DATE OF SERVICE: PREOPERATIVE DIAGNOSES: 1. 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 2. Menorrhagia. 3. Dysmenorrhea. 4. Chronic pelvic pain. POSTOPERATIVE DIAGNOSES: 1. 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 2. Menorrhagia. 3. Dysmenorrhea. 4. Chronic pelvic pain. PROCEDURE: Robotic-assisted total laparoscopic hysterectomy with bilateral salpingectomy. SURGEON: Jeferson Tatum DO DATA CENTER ENGINEER: Herminia Flores DNP, was necessary for manipulation and retraction throughout the procedure. ANESTHESIA: General endotracheal. ESTIMATED BLOOD LOSS: Minimal. URINE OUTPUT: 150 mL clear at the end of procedure. FLUIDS: 1300 mL lactated Ringer's solution. FINDINGS: A hyperemic-appearing uterus with evidence of bilateral tubal ligation of the fallopian tubes, otherwise grossly normal appearing pelvic anatomy, grossly normal appearing upper abdominal anatomy. SPECIMEN SENT: Uterus and bilateral fallopian tubes. INDICATIONS FOR PROCEDURE: This 40-year-old female is a patient who had sought my care approximately 2 years ago prior to the diagnosis of hereditary angioedema. She continued to have chronic pelvic pain and dysmenorrhea despite alternative measures and conservative measures that were tried by myself and other providers in the past. She finally develop the diagnosis of hereditary angioedema, at which point she returned to my care to discuss removing the uterus as the periods that she has every month are trigger for her HAE. Risks of that procedure were discussed with the patient in detail including risk of bleeding, infection, damage to surrounding structures including, but not limited to bowel, bladder, ureter, kidneys, possible need for operation, postoperative complications that may occur, risk from anesthesia, recovery timeframe and even . After everything was discussed with the patient in detail, consent was obtained in the preoperative area, the patient was taken to the operating room. OPERATIVE REPORT IN DETAIL: Once in the operating room, general anesthesia was found to be adequate, she was placed in dorsal lithotomy position, prepped and draped in normal sterile fashion. Blackwell catheter was placed using sterile technique. A weighted speculum inserted to the patient's vagina. Right angle retractor was used to visualize the cervix, which was grasped at 12 o'clock position using a long Allis clamp and 0 Vicryl suture was then placed in the anterior lip of the cervix and this was using my retraction point. I then gently sound the uterine cavity, depth was found to be 8 cm. I then placed an 8 cm DEE uterine manipulator tip and a 3 cm colpotomy ring. The manipulator tip was advanced into the uterus and the balloon was deployed and the colpotomy ring was advanced around the vaginal fornix. All other instruments were removed from the patient's vagina. I then performed a change of gloves obtained my attention to the abdomen, where subcostally down the midclavicular line and placed a Veress needle through the skin and the intraperitoneal placement was confirmed using saline drop test. I then proceeded with insufflation using CO2 gas and opening pressure of 2 mmHg was noted, proceeded to max pressure of 15 mmHg, at which point I make an 8 mm incision infraumbilically with a knife and directed a blunt da Anne camera trocar through this incision until intraperitoneal placement was confirmed using da Anne laparoscope. Brief scan of the upper abdominal anatomy appears to be grossly normal. The Veress needle insertion point appears to have no damage upon either entry site and the Veress needle was then removed. I then placed two lateral trocars, both 8 mm trocars approximately 8 cm lateral to my infraumbilical trocar, placed under direct visualization of laparoscope. Once both these trocars were in place, bringing the da Anne robot and docked in appropriate fashion. Using the vessel sealer in the left hand and monopolar luis enrique in the right hand, I took my place at the operative console and performed the following dissection bilaterally. I started the uteroovarian ligament, which I sealed and transect using vessel sealer. I then created a window in the mesosalpinx and took that dissection down the mesosalpinx using the vessel sealer amputating the fallopian tube from its surrounding blood supply. I then grasped the round ligament, which I sealed and transected using vessel sealer. I then grasped the entire broad ligament, which I sealed and transected using the vessel sealer down to the level of the lower uterine segment, at which point I the anterior and posterior leaflets of the broad ligament. Anterior leaflet was taken around the anterior vaginal fornix and posterior leaflets was taken around the posterior vaginal fornix. This allows me to skeletonize uterine vessels laterally as well as pull laterally the ureter away from my dissection planes. I then sealed and transected the uterine vessels using the vessel sealer. I created a colpotomy at 12 o'clock position using monopolar luis enrique and took this circumferentially around the vaginal fornix amputating the cervix away from the vagina. The entire specimen was then removed through the vagina. I then closed the lateral vaginal apices of the vaginal cuff using 2-0 Vicryl suture in a [id number] fashion colposuspending into the uterosacral ligaments. I closed the remainder of the vaginal cuff using 2-0 V-Loc in a running fashion, after which there was no active bleeding noted from any of my dissection planes. I then undocked the da Anne robot and proceeded with remainder of the case laparoscopically. I copiously irrigated the pelvis using normal saline. Once again, there was no active bleeding noted from any of my dissection planes. I then placed Surgiflo hemostatic agent over all my planes of dissection to ensure excellent postoperative hemostasis. I then had the patient taken out of steep Trendelenburg where I removed the lateral trocars under direct visualization of the laparoscope and infraumbilical trocars left in place to release insufflation and I introduced 10 mL of 0.25% Marcaine into peritoneal cavity for postoperative pain management. I then removed this trocar as well. The skin reapproximated using 4-0 Monocryl in interrupted subcuticular stitches. Dermabond was applied to the incisions and Band-Aids were placed over the incisions as well. Blackwell catheter was left in place. The patient tolerated the procedure well and sent to recovery area in stable condition. Lap and sponge counts were correct at the end of the procedure. Instrument count was correct as well. Two grams of Ancef, 500 mg of Flagyl were given preoperatively for infection prophylaxis. Job ID: [id number] DocumentID: [id number] Dictated Date: 03/26/2021 13:16:35 Optical Laboratory Technician Date: 03/26/2021 22:05:25 Dictated By: JEFERSON TATUM DO
--- NOTE | 2021-03-27 14:13 | Anesthesia-General Post-Op ---
General Patient Condition Mental Status/LOC: Same as Preop Cardiovascular: Satisfactory Nausea/Vomiting: Absent Respiratory: Satisfactory Pain: Controlled Complications: Absent Post Op Complications Complications None Follow Up Care/Instructions Patient Instructions None needed. Anesthesia/Patient Condition Patient Condition Patient is already discharged to home and she was doing well yesterday after the procedure, no complaints, stable vital signs, no apparent adverse anesthesia problems. SULAIMAN COTTER DO Mar 27, 2021 14:13
[2021-03-31] MEDS ORDERED: IBUPROFEN 600 MG (MOTRIN) TAB PO SCH (10:00)
== END 2021-03-26 18:40 | disposition home or self-care (01) ==
LOC: SDC 08:05 → WS 14:20 → SDC 18:40
PROVIDERS: ATTEND Obstetrics & Gynecology
DX: N72 Inflammatory disease of cervix uteri (principal); N80.2 Endometriosis of fallopian tube; N88.8 Other specified noninflammatory disorders of cervix uteri; D84.1 Defects in the complement system; Z98.51 Tubal ligation status; Z79.899 Other long term (current) drug therapy
CPT/HCPCS: 36415; 84703; 85025; 86850; 86900; 86901; 87081

== ENCOUNTER → 2021-05-28 | Outpatient (CLI) | payer BC ==
[~2021-05-28] MED LIST changes: +ACHD5005 PO; +DOCU-239 PO; +IBUP-844 PO; +SMT80CT PO
--- NOTE | 2021-05-28 13:40 | Diagnostic Imaging Report ---
INDICATION: Left breast pain, left breast lump. COMPARISON: 01/01/2019. TECHNIQUE: 2D and 3D bilateral diagnostic mammography was performed with CAD. FINDINGS: Both breasts remain heterogeneously dense, limiting the sensitivity of mammography. The overall parenchymal pattern is stable. There are benign calcifications. No mass or malignant-appearing microcalcifications are seen. The axillae are unremarkable. A BB marker was placed at an area of palpable abnormality in the lateral left breast. No underlying abnormality is seen. IMPRESSION: No mammographic features suspicious for malignancy are identified. Even so, sonographic interrogation of the area of palpable abnormality in the lateral left breast is recommended and will be performed today. ACR BI-RADS Category 0: Incomplete. (Needs additional imaging evaluation). Result letter will be mailed to the patient. Note: At least 10% of breast cancer is not imaged by mammography. Dictated by: Dictated on workstation # [id number]
--- NOTE | 2021-05-28 14:38 | Diagnostic Imaging Report ---
INDICATION: Left breast pain, left breast lump. CORRELATION is made with prior breast ultrasound from 01/01/2019. Previously noted cyst at the 12:00 location of the left breast is no longer visualized. No new abnormality is seen. The area of new lump at the 2-3 o'clock location periareolar region is unremarkable, as well. No solid or cystic mass is detected. IMPRESSION: BI-RADS Category 1 No sonographic abnormality is detected. ACR BI-RADS Category 1: Negative. Result letter will be mailed to the patient. Note: At least 10% of breast cancer is not imaged by mammography. Dictated by: Dictated on workstation # [id number]
== END ==
LOC: RAD 12:44
PROVIDERS: ATTEND Nurse Practitioner Family
DX: N63.20 Unspecified lump in the left breast, unspecified quadrant (principal); N64.4 Mastodynia
CPT/HCPCS: 76642; 77066; G0279; 77062